=== PATIENT | female | born 1980 | race Caucasian/White ===

== ENCOUNTER 2017-06-20 09:07 | Day surgery (SDC) | payer BC, OTHER ==
[2017-06-20] MEDS ORDERED: MIDAZOLAM 2 MG/2 ML INJ ONE (10:52)
[2017-06-20] MEDS ORDERED: PROPOFOL INJ 200 MG/20 ML VIAL IV ONE (10:53)
[2017-06-20] MEDS ORDERED: MEPERIDINE HCL/PF INJ 25 MG/1 ML DISP.SYRIN IV PRN (11:02)
[2017-06-20] MEDS ORDERED: PROMETHAZINE HCL INJ 25 MG/1 ML VIAL IV PRN ×2 (11:02)
[2017-06-20] MEDS ORDERED: FENTANYL CITRATE INJ/PF 100 MCG/2 ML AMPUL IV PRN ×3 (11:02)
[2017-06-20] MEDS ORDERED: DIPHENHYDRAMINE HCL 50 MG/ML VIAL IV PRN (11:02)
--- NOTE | 2017-06-20 11:34 | Operative Report ---
Operative Report DATE OF SURGERY: 06/20/17 Operative Report: The risks, benefits and alternatives of the procedure including risks of bleeding, perforation requiring surgery are explained to the patient in detail and informed consent is obtained. Patient was taken back to the operating room and placed in the left, lateral decubital position. Timeout was called. Propofol medications administered. A rectal examination is done which did not reveal any masses, tears or fissures. An Olympus videoscope was inserted into the patient's rectum. The scope was then carefully advanced all the way to the cecum. Intubation of the terminal ileum is done. The scope was then sequentially pulled back via the various segments of the colon including the ascending colon, hepatic flexure, transverse colon, splenic flexure, descending colon and finally in to the rectosigmoid portions of the colon. Retroflexion maneuver is performed. Intubation of the terminal ileum is done. PREOPERATIVE DIAGNOSIS: Rectal irritation and discharge POSTOPERATIVE DIAGNOSIS: normal colonoscopy. internal hemorrhoids and rectal irritation noted. random biopsies are obtained in the terminal ileum and on the right side of the colon OPERATION: Colonoscopy with biopsy SURGEON: RENARD CHACON ANESTHESIA: LMAC TISSUE REMOVED OR ALTERED: As noted above. COMPLICATIONS: None. ESTIMATED BLOOD LOSS: None. INTRAOPERATIVE FINDINGS: As noted above. PROCEDURE: Patient tolerated the procedure well. No immediate postprocedure complications are noted. Patient discharged in good condition. Discharge date June 20, 2017. Discharge diet: Regular. Discharge activity: Regular. 2-3 week follow-up to discuss findings. Patient is instructed to call the office or proceed to the emergency room should there be any further problems or questions. We will went pathology.
[2017-06-20 13:16] VITALS: BP 120/70
== END 2017-06-20 13:05 | disposition home or self-care (01) ==
LOC: OROUT 09:07
PROVIDERS: ATTEND Internal Medicine Gastroenterology
DX: K92.1 Melena (principal); K64.8 Other hemorrhoids; R19.8 Other specified symptoms and signs involving the digestive system and abdomen; Z88.5 Allergy status to narcotic agent
CPT/HCPCS: 45380; 81025; 88305 ×2; J2250; J2704; 811